=== PATIENT | male | born 1990 | race Caucasian/White ===

== ENCOUNTER → 2018-05-22 | Outpatient (CLI) | payer OTHER | LOC: ULTRA 07:49 | DX: R19.06 Epigastric swelling, mass or lump (principal) ==

== ENCOUNTER 2018-11-27 18:05 | Emergency (ER) | payer OTHER ==
[~2018-11-27] VITALS: Ht 188 cm; Wt 97.5 kg
[2018-11-27] MEDS ORDERED: LISINOPRIL5 MG PO (18:15)
[2018-11-27 19:07] LABS: ABSOLUTE NEUTROPHILS 7.9 thou/uL (1.4-8.2); BASOPHILS 0.5 % (0.0-2.0); EOSINOPHILS 0.8 % (0.0-3.0); HEMATOCRIT 44.7 % (42.0-52.0); HEMOGLOBIN 15.7 gm/dL (14.0-18.0); LYMPHOCYTES 14.5 % (24.0-44.0); MCH 31.1 pg (26.0-34.0); MCHC 35.2 g/dL (28.0-37.0); MCV 88.4 fL (80.0-100.0); MONOCYTES 6.6 % (1.0-8.0); PLATELET COUNT 336 thou/uL (150-400); POLYS 77.6 % (36.0-66.0); RBC 5.05 mil/uL (4.50-6.00); RDW 12.4 % (10.5-14.5); WBC 10.2 thou/uL (4.0-11.0)
[2018-11-27 19:15] LABS: CALCIUM 9.3 mg/dL (8.5-10.1); CREATININE 1.2 mg/dL (0.7-1.3)
[2018-11-27 19:20] LABS: ALBUMIN 4.1 g/dL (3.4-5.0); TOTAL BILIRUBIN 0.4 mg/dL (<0.1-1.0); TOTAL PROTEIN 7.5 g/dL (6.4-8.2)
[2018-11-27 19:21] LABS: APTT 24.4 Seconds (24.5-32.8); INR 1.1; PROTIME 11.2 Seconds (9.3-11.4)
[2018-11-27] MEDS ORDERED: NORFLEX100 MG PO (19:43)
[2018-11-27] MEDS ORDERED: NAPROSYN500 MG PO (19:43)
[2018-11-27 20:03] VITALS: BP 125/74
== END 2018-11-27 20:06 | disposition home or self-care (01) ==
LOC: ER 18:05
PROVIDERS: Physician Assistant
DX: R07.89 Other chest pain (principal); R10.9 Unspecified abdominal pain; W11.XXXA Fall on and from ladder, initial encounter; Y93.89 Activity, other specified; Y92.89 Other specified places as the place of occurrence of the external cause; Y99.8 Other external cause status

== ENCOUNTER 2019-01-21 13:24 | Emergency (ER) | payer OTHER ==
[~2019-01-21] VITALS: Ht 185.4 cm; Wt 96.2 kg
[~2019-01-21 13:24] MED LIST: LISINOPRIL5 MG PO; NAPROSYN500 MG PO; NORFLEX100 MG PO
[2019-01-21 14:02] LABS: URINE BILIRUBIN NEGATIVE (Negative); URINE BLOOD NEGATIVE (Negative); URINE CLARITY CLEAR; URINE COLOR YELLOW; URINE GLUCOSE-RANDOM* NEGATIVE (Negative); URINE KETONES NEGATIVE (Negative); URINE LEUKOCYTES NEGATIVE (Negative); URINE NITRITE NEGATIVE (Negative); URINE PROTEIN (DIPSTICK) NEGATIVE (Negative); URINE SPECIFIC GRAVITY <= 1.005 (1.005-1.035); URINE UROBILINOGEN 0.2 E.U./dl (0.2-1.0)
[2019-01-21 14:07] LABS: AMP/METHAMP Negative (Negative); BARBITURATES Negative (Negative); BENZODIAZEPINES Negative (Negative); COCAINE Negative (Negative); METHADONE Negative (Negative); OPIATES Negative (Negative); PCP Negative (Negative)
[2019-01-21 14:22] LABS: ABSOLUTE NEUTROPHILS 5.3 thou/uL (1.4-8.2); BASOPHILS 0.9 % (0.0-2.0); EOSINOPHILS 1.7 % (0.0-3.0); HEMATOCRIT 47.9 % (42.0-52.0); HEMOGLOBIN 16.5 gm/dL (14.0-18.0); LYMPHOCYTES 19.1 % (24.0-44.0); MCH 30.4 pg (26.0-34.0); MCHC 34.4 g/dL (28.0-37.0); MCV 88.3 fL (80.0-100.0); PLATELET COUNT 340 thou/uL (150-400); POLYS 70.3 % (36.0-66.0); RBC 5.43 mil/uL (4.50-6.00); RDW 12.3 % (10.5-14.5); WBC 7.6 thou/uL (4.0-11.0)
[2019-01-21 14:29] LABS: ANION GAP 7 mmol/L (7-16); BUN 19 mg/dL (7-18); CALCIUM 9.5 mg/dL (8.5-10.1); CHLORIDE 101 mmol/L (98-107); CO2 29 mmol/L (21-32); GLUCOSE 96 mg/dL (74-106); POTASSIUM 3.7 mmol/L (3.5-5.1); SODIUM 137 mmol/L (136-145)
[2019-01-21 14:37] LABS: ALBUMIN 4.3 g/dL (3.4-5.0); SGOT 18 U/L (15-37); SGPT 30 U/L (30-65); TOTAL BILIRUBIN 0.5 mg/dL (<0.1-1.0); TOTAL PROTEIN 8.1 g/dL (6.4-8.2); TROPONIN-I <0.06 ng/mL (<0.06)
[2019-01-21 15:43] VITALS: BP 132/78
--- NOTE | 2019-01-22 07:50 | EKG ---
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1990 Requested By: Pati Beltran Order Number: [id number] MD: Jakob Bell Measurements Intervals [place] Rate: 75 P: -12 RI: 148 QRS: 105 QRSD: 96 T: 54 QT: 362 QTc: 405 Interpretive Statements Sinus rhythm Borderline right axis deviation No previous ECG available for comparison Electronically Signed On 01-22-2019 7:50:15 CDT by Jakob eBll [email or web address] ��������������������������������������������� <ELECTRONICALLY SIGNED> ���������������������������������������� By: Jakob Bell MD, [facility] ��������������������������������������������� 01/22/19 0750 1340 1340 Jakob Bell MD, FACC /EPI
== END 2019-01-21 15:44 | disposition home or self-care (01) ==
LOC: ER 13:24
PROVIDERS: Physician Assistant
DX: R55 Syncope and collapse (principal); E86.0 Dehydration

== ENCOUNTER 2019-10-30 21:35 | Emergency (ER) | payer OTHER ==
[~2019-10-30] VITALS: Ht 177.8 cm; Wt 77.1 kg
[2019-10-30 22:05] LABS: ABSOLUTE NEUTROPHILS 5.7 thou/uL (1.4-8.2); BASOPHILS 0.5 % (0.0-2.0); EOSINOPHILS 5.1 % (0.0-3.0); HEMATOCRIT 45.3 % (42.0-52.0); HEMOGLOBIN 15.3 gm/dL (14.0-18.0); LYMPHOCYTES 31.3 % (24.0-44.0); MCH 29.9 pg (26.0-34.0); MCHC 33.8 g/dL (28.0-37.0); MCV 88.6 fL (80.0-100.0); MONOCYTES 9.1 % (1.0-8.0); PLATELET COUNT 353 thou/uL (150-400); RBC 5.11 mil/uL (4.50-6.00); RDW 12.7 % (10.5-14.5); WBC 10.6 thou/uL (4.0-11.0)
[2019-10-30 22:23] LABS: ANION GAP 9 mmol/L (7-16); BUN 20 mg/dL (7-18); CALCIUM 9.5 mg/dL (8.5-10.1); CHLORIDE 103 mmol/L (98-107); CO2 28 mmol/L (21-32); CREATININE 1.1 mg/dL (0.7-1.3); GLUCOSE 109 mg/dL (74-106); POTASSIUM 3.4 mmol/L (3.5-5.1); SODIUM 140 mmol/L (136-145)
[2019-10-30 22:31] LABS: TROPONIN-I <0.06 ng/mL (<0.06)
[2019-10-31 05:57] VITALS: BP 160/85
--- NOTE | 2019-11-01 16:09 | EKG ---
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 Baseline wander in lead(s) V2 Electronically Signed On 11-01-2019 16:08:47 CERTIFIED GENETIC COUNSELOR by Pipo Blue [email or web address] <ELECTRONICALLY SIGNED> By: Pipo Blue MD 11/01/19 1608 2155 2155 Pipo Blue MD /BABITA
== END 2019-10-30 23:50 | disposition home or self-care (01) ==
LOC: ER 21:35
PROVIDERS: Emergency Medicine
DX: R07.9 Chest pain, unspecified (principal); I10 Essential (primary) hypertension

== ENCOUNTER → 2019-11-26 | Outpatient (CLI) | payer OTHER | END | disposition home or self-care (01) | LOC: SJCVCIMAG 14:03 → SJCVC 15:40 | DX: R07.9 Chest pain, unspecified (principal); I10 Essential (primary) hypertension ==

== ENCOUNTER 2021-05-07 09:44 | Emergency (ER) | payer OTHER ==
[~2021-05-07] VITALS: Ht 185.4 cm; Wt 90.7 kg
[2021-05-07 10:11] LABS: ABSOLUTE NEUTROPHILS 3.2 thou/uL (1.4-8.2); BASOPHILS 0.8 % (0.0-2.0); EOSINOPHILS 3.3 % (0.0-3.0); HEMATOCRIT 46.4 % (42.0-52.0); HEMOGLOBIN 15.7 gm/dL (14.0-18.0); LYMPHOCYTES 33.1 % (24.0-44.0); MCH 30.8 pg (26.0-34.0); MCHC 33.7 g/dL (28.0-37.0); MCV 91.4 fL (80.0-100.0); MONOCYTES 11.2 % (1.0-8.0); PLATELET COUNT 341 thou/uL (150-400); POLYS 51.6 % (36.0-66.0); RBC 5.08 mil/uL (4.50-6.00); RDW 12.5 % (10.5-14.5); WBC 6.3 thou/uL (4.0-11.0)
[2021-05-07 10:21] LABS: ANION GAP 11 mmol/L (7-16); BUN 12 mg/dL (7-18); CALCIUM 9.5 mg/dL (8.5-10.1); CHLORIDE 104 mmol/L (98-107); CO2 26 mmol/L (21-32); CREATININE 1.1 mg/dL (0.7-1.3); GLUCOSE 113 mg/dL (74-106); POTASSIUM 3.9 mmol/L (3.5-5.1); SODIUM 141 mmol/L (136-145)
[2021-05-07 10:29] LABS: ALBUMIN 4.1 g/dL (3.4-5.0); MAGNESIUM 2.1 mg/dL (1.8-2.4); SGOT 21 U/L (15-37); SGPT 33 U/L (16-63); TOTAL BILIRUBIN 0.5 mg/dL (0.2-1.0); TOTAL PROTEIN 7.9 g/dL (6.4-8.2); TROPONIN-I <0.06 ng/mL (<0.06)
--- NOTE | 2021-05-07 10:30 | EKG ---
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 : 1990 Requested By: Pepe Hammond Order Number: [id number] MD: Iam Carney Measurements Intervals [place] Rate: 66 P: -8 [place]: 147 QRS: 105 QRSD: 95 T: 57 QT: 393 QTc: 412 Interpretive Statements Sinus rhythm Right axis deviation J Point elev, probable normal early repol pattern Compared to ECG 10/30/2019 21:55:16 Early repolarization no longer present ST (T wave) deviation still present Electronically Signed On 05-07-2021 10:30:18 CDT by Iam Carney [email or web address] <ELECTRONICALLY SIGNED> By: Iam Carney MD, [facility] 05/07/21 1030 0947 6 Iam Carney MD, FACC /EPI
[2021-05-07 12:21] VITALS: BP 150/97
== END 2021-05-07 12:21 | disposition home or self-care (01) ==
LOC: ER 09:44
PROVIDERS: Emergency Medicine Emergency Medical Services
DX: M94.0 Chondrocostal junction syndrome [Tietze] (principal)

== ENCOUNTER 2021-05-31 20:24 | Emergency (ER) | payer OTHER ==
[~2021-05-31] VITALS: Ht 185.4 cm; Wt 90.7 kg
[2021-05-31 20:31] VITALS: BP 113/77
[2021-05-31] MEDS ORDERED: IBUPROFEN 600600 M1 PO (21:09)
== END 2021-05-31 21:33 | disposition home or self-care (01) ==
LOC: ER 20:24
DX: S93.401A Sprain of unspecified ligament of right ankle, initial encounter (principal); I10 Essential (primary) hypertension; Z79.899 Other long term (current) drug therapy; Z72.89 Other problems related to lifestyle; W50.0XXA Accidental hit or strike by another person, initial encounter; Y93.68 Activity, volleyball (beach) (court); Y92.89 Other specified places as the place of occurrence of the external cause; Y99.8 Other external cause status